=== PATIENT | female | born 1960 | race Caucasian/White ===

== ENCOUNTER 2023-12-21 09:24 | Emergency (ER) | payer MEDICAID ==
[~2023-12-21] VITALS: Ht 162.6 cm; Wt 55.0 kg
[2023-12-21 09:30] VITALS: O2SAT 100
[2023-12-21 10:35] LABS: BASOPHILS % 0.6 % (0.0-2.0); EOSINOPHILS % 0.6 % (0.0-5.0); HEMATOCRIT. 39.2 % (36.0-48.0); HEMOGLOBIN. 13.2 g/dL (12.0-16.0); LYMPHOCYTES % 11.8 % (20.0-50.0); MEAN CORPUSCULAR HEMOGLOBIN 29.9 pg (28.0-32.0); MEAN CORPUSCULAR HGB CONC 33.7 g/dL (31.0-37.0); MEAN CORPUSCULAR VOLUME 88.8 fL (81.0-99.0); MEAN PLATELET VOLUME 8.4 fl (7.4-10.4); MONOCYTES % 9.4 % (2.0-8.0); NEUTROPHILS % 77.6 % (40.0-76.0); PLATELET 255 x1000/uL (130-400); RED BLOOD CELL COUNT 4.41 mill/uL (4.2-5.4); RED CELL DISTRIBUTION WIDTH 12.7 % (11.6-14.6); WHITE BLOOD COUNT 11.7 x1000/uL (4.5-11.0)
[2023-12-21 10:56] LABS: CHLORIDE 104 mEq/L (98-107); POTASSIUM 3.6 mEq/L (3.5-5.1); SODIUM 137 mEq/L (136-145)
[2023-12-21 10:57] LABS: CALCIUM 9.3 mg/dL (8.7-10.4); CARBON DIOXIDE 28 mEq/L (21-32)
[2023-12-21 11:02] LABS: CREATININE 0.6 mg/dL (0.6-1.0); GLUCOSE 107 mg/dL (70-105); UREA NITROGEN BLOOD 10 mg/dL (9-23)
[2023-12-21 11:41] LABS: ALANINE AMINOTRANSFERASE 10 IU/L (10-49); ALBUMIN 4.6 g/dL (3.2-4.8); ASPARTATE AMINOTRANSFERASE 19 IU/L (<34); BILIRUBIN DIRECT 0.2 mg/dL (<=3.0); BILIRUBIN TOTAL 0.6 mg/dL (0.1-1.0)
[2023-12-21] MEDS: FAMOTIDINE 20MG TABLET PO ONE (12:00)
[2023-12-21 12:07] LABS: CLARITY URINE CLEAR (CLEAR); COLOR URINE YELLOW (YELLOW); GLUCOSE URINE NEGATIVE (NEGATIVE); KETONES URINE NEGATIVE (NEGATIVE); LEUKOCYTE ESTERASE URINE 3+ (NEGATIVE); NITRITE URINE NEGATIVE (NEGATIVE); OCCULT BLOOD URINE TRACE (NEGATIVE); PROTEIN URINE NEGATIVE (NEGATIVE); SPECIFIC GRAVITY URINE 1.012 (1.005-1.030); UROBILINOGEN URINE 0.2 E.U./dL (0.2-1.0)
[2023-12-21] MEDS: MAGNESIUM/ALUMINUM HYDROXIDE/SIMETHICONE 30ML UDC PO STA (12:07)
[2023-12-21 12:24] LABS: BACTERIA URINE TRACE; RBC URINE 0-2 /hpf (0-2); SQUAMOUS EPITHELIAL CELL URINE 1+ /lpf (RARE/1+); YEAST URINE NONE SEEN
[2023-12-21] MEDS ORDERED: CIPR-263 MT (12:33)
[2023-12-21] MEDS ORDERED: METR-167 MT (12:33)
[2023-12-21] MEDS ORDERED: ACET-2708 MT (12:33)
[2023-12-21 13:30] VITALS: BP 133/66; PULSE 74; RESP 16; TEMP 98.6
== END 2023-12-21 13:21 | disposition home or self-care (01) ==
LOC: ER 10:31
DX: K57.92 Diverticulitis of intestine, part unspecified, without perforation or abscess without bleeding (principal); N39.0 Urinary tract infection, site not specified; I10 Essential (primary) hypertension; Z98.890 Other specified postprocedural states
CPT/HCPCS: 80076; 80048; 81003; 83690; 85025; 36415; 74176; 99284; Z7610 ×2

== ENCOUNTER 2024-02-22 08:05 | Emergency (ER) | payer MEDICAID ==
[~2024-02-22] VITALS: Ht 160 cm; Wt 58.0 kg
[~2024-02-22 08:05] MED LIST: ACET-2708 MT; CIPR-263 MT; METR-167 MT
[2024-02-22 08:17] VITALS: O2SAT 99
[2024-02-22] MEDS ORDERED: AMOX1TAB16 MT (08:59)
[2024-02-22] MEDS ORDERED: IBUP-2029 MT (09:00)
[2024-02-22 10:19] VITALS: BP 148/72; PULSE 75; RESP 18; TEMP 98.2
== END 2024-02-22 10:48 | disposition home or self-care (01) ==
LOC: ER 08:05
DX: K04.7 Periapical abscess without sinus (principal); I88.8 Other nonspecific lymphadenitis; I10 Essential (primary) hypertension; E03.9 Hypothyroidism, unspecified; Z98.890 Other specified postprocedural states
CPT/HCPCS: 99283

== ENCOUNTER 2025-04-08 07:55 | Emergency (ER) | payer MEDICAID ==
[~2025-04-08] VITALS: Ht 154.9 cm; Wt 56.0 kg
[~2025-04-08 07:55] MED LIST changes: +AMOX1TAB16 MT; +IBUP-2029 MT
[2025-04-08 07:59] VITALS: O2SAT 100
[2025-04-08] MEDS: TETRACAINE 0.5% OPHTH DROPS 4ML BOTHEYE ONE (08:41)
[2025-04-08] MEDS: FLUORESCEIN SODIUM 1MG/STRIP BOTHEYE ONE (08:41)
[2025-04-08] MEDS ORDERED: TRIMO EACHEYE (08:48)
[2025-04-08] MEDS ORDERED: IBUP-2030 MT (08:54)
[2025-04-08 08:59] VITALS: BP 159/81; PULSE 72; RESP 18; TEMP 37; O2SAT 100
== END 2025-04-08 09:03 | disposition home or self-care (01) ==
LOC: ER 07:55
DX: H10.9 Unspecified conjunctivitis (principal); I10 Essential (primary) hypertension; Z98.890 Other specified postprocedural states; Z79.899 Other long term (current) drug therapy
CPT/HCPCS: 99283